=== PATIENT | male | born 1965 | race Caucasian/White ===

== ENCOUNTER → 2020-09-24 | Outpatient (CLI) | payer OTHER ==
[2016-10-06 11:15] VITALS: BP 126/76
[~2020-09-24] MED LIST: APIX5TAB PO; ASPI-630 PO; ATOR20TA PO; ATOR40TA59 PO; AZIT1PAC9 PO; LISI2.5T PO; METO25TA4 PO; OXYC-325 PO; PRAS10TA9 PO; SACU1TAB7 PO
== END ==
LOC: LAB 14:29
PROVIDERS: ATTEND Surgery
DX: Z01.812 Encounter for preprocedural laboratory examination (principal); K40.90 Unilateral inguinal hernia, without obstruction or gangrene, not specified as recurrent; Z20.828 Contact with and (suspected) exposure to other viral communicable diseases
CPT/HCPCS: U0003

== ENCOUNTER 2020-09-27 08:38 | Day surgery (SDC) | payer OTHER ==
[~2020-09-27] VITALS: Ht 175.3 cm; Wt 78.5 kg
[~2020-09-27 08:38] MED LIST changes: +ACETAMINOPHEN 500 MG TABLET PO PRN; +HYDROmorphone 2 MG/ML VIAL IV PRN; +LIDOCAINE 1% PF 2 ML VIAL. ID PRN; +ONDANSETRON PF 4 MG/2 ML VIAL. IV PRN; -OXYC-325 PO; +PROCHLORPERAZINE 10 MG/2 ML VIAL. IV PRN; -SACU1TAB7 PO; +ceFAZolin SODIUM IV Push 1 GM VIAL. IVP PRN; +fentaNYL PF VIAL 100 MCG/2 ML VIAL IV PRN
[2020-09-27] MEDS ORDERED: SUCCINYLCHOLINE 200 MG/10 ML VIAL. ONE (09:00)
[2020-09-27] MEDS ORDERED: LIDOCAINE 2% PF 5 ML VIAL. ONE (09:00)
[2020-09-27] MEDS ORDERED: PROPOFOL 10 MG/ML (20ML) VIAL. IV ONE (09:00)
[2020-09-27] MEDS ORDERED: fentaNYL PF VIAL 100 MCG/2 ML VIAL ONE ×2 (09:00→11:08)
[2020-09-27] MEDS ORDERED: ROCURONIUM 50 MG/5 ML VIAL. ONE (09:00)
[2020-09-27] MEDS: IV RINGERS,LACTATED 1000ML 1,000 ML IV SCH ×2 (09:30→11:27)
[2020-09-27] MEDS ORDERED: SACU1TAB7 PO (09:36)
[2020-09-27] MEDS ORDERED: MINERAL OIL for SURGERY 10 ML VIAL. MC ONE (09:38)
[2020-09-27] MEDS ORDERED: BUPIVACAINE-EPI 0.25%-1:200000 MPF 30 ML VIAL. INJ ONE (09:45)
[2020-09-27] MEDS ORDERED: DEXAMETHASONE SOD PHOS 20 MG/5 ML VIAL. ONE (10:04)
[2020-09-27] MEDS ORDERED: DESFLURANE 31 TO 60 MINUTES IH ONE (10:04)
[2020-09-27] MEDS ORDERED: PHENYLEPHRINE in 0.9% NACL PF 1 MG/10 ML SYRINGE. IV ONE (10:19)
[2020-09-27] MEDS ORDERED: ePHEDrine PF IN SALINE 50 MG/10 ML SYRINGE. IV ONE (10:34)
[2020-09-27] MEDS ORDERED: GLYCOPYRROLATE 1 MG/5 ML VIAL. ONE (10:38)
[2020-09-27] MEDS ORDERED: NEOSTIGMINE METHYLSULFATE 5 MG/5 ML SYRINGE. ONE (10:38)
[2020-09-27] MEDS ORDERED: ONDANSETRON PF 4 MG/2 ML VIAL. ONE (10:38)
--- NOTE | 2020-09-27 10:58 | PDOC4 ---
Operative Note Operative Note Date: 2019 at 1055 Preoperative diagnosis: Left inguinal hernia Postoperative diagnosis: Same Procedure: Robotic assisted laparoscopic left inguinal hernia repair with mesh Surgeon: [place] Specimen: None Dictation: Patient is a 55-year-old male whose had a painful bulge in his left groin. The procedure of robotic assisted laparoscopic left inguinal hernia repair with mesh was explained to the patient detail risk benefits were also discussed including bleeding infection injury to intra-abdominal contents possible necessitating further or open operations. The patient seemed understand and gave both verbal and written consent to have the procedure performed. Patient was taken to the operating room placed in the supine position general anesthesia was initiated once patient was sleeping intubated placed in low lithotomy positioning and his abdomen was prepped and draped usual sterile fashion using ChloraPrep. An area just above the umbilicus was injected with quarter percent Marcaine with epinephrine incision was made 11 blade scalpel and a varies needle was placed within the abdomen creating pneumoperitoneum once this was complete 8 mm da Cal port was placed and the da Cal camera's placed within the abdomen and inspected was noted that there was a left inguinal hernia with incarcerated contents. A 8 mm da Cal port was placed in the right midabdomen and the 8 mm da Cal port was placed in the left midabdomen the da Cal robot was brought and docked all port sites surgeon went to the robotic console using a grasper and Endo Effie scissors the hernia contents were reduced and a incision was made in the peritoneum and a inferior flap was propagated reducing the hernia sac. A large Bard 3D max mesh for the left side was placed over the hernia defect and then the peritoneum was closed with a running 2 OV lock absorbable suture. The da Cal was undocked from all port sites all ports were removed and the port incisions were all closed with 4 subcuticular Monocryl Mastisol Steri-Strips and island dressings were applied. Patient was awakened and extubated in the operating room taken to recovery in stable condition all sponge instrument needle counts listed as correct estimated blood loss 10 mL JUAN TIWARI MD Sep 27, 2020 10:58
--- NOTE | 2020-09-27 11:00 | DISCH ---
DISCHARGE INSTRUCTIONS Condition on Discharge Condition on Discharge: Stable Activity After Discharge Activity Instructions for Disc: Avoid exertion, Other, see below Other activity instructions: No lifting more than 20 pounds for 2 weeks Lifting Instructions after Dis: No heavy lifting, No pulling or pushing Diet after Discharge Diet after Discharge: Cardiac, Low Fat Diet Texture: Regular Wound Incision Care Other wound/incision instructi: May shower in 24 hours Contacting the DRSarina after DC Call your doctor for: If your condition worsens Follow-Up Follow up with: Dr. Tiwari in 2 weeks Treatment/Equipment after DC Adaptive Equipment Issued: None JUAN TIWARI MD Sep 27, 2020 11:00
[2020-09-27] MEDS ORDERED: KETOROLAC 30 MG/ML VIAL. ONE (11:08)
[2020-09-27] MEDS: MORPHINE SULFATE 2 MG/ML VIAL. IV PRN ×2 (11:24→11:47)
[2020-09-27] MEDS: fentaNYL PF VIAL 100 MCG/2 ML VIAL IV PRN ×2 (11:25→11:48)
[2020-09-27] MEDS ORDERED: PROCHLORPERAZINE 10 MG/2 ML VIAL. ONE (11:26)
[2020-09-27] MEDS ORDERED: OXYC-325 PO (11:57)
[2020-09-27] MEDS ORDERED: oxyCODONE/APAP 5/325 1 TAB TABLET PO ONE (12:00)
[2020-09-27] MEDS ORDERED: oxyCODONE/APAP 5/325 1 TAB TABLET PO PRN (12:00)
[2020-09-27 12:13] VITALS: BP 98/66
== END 2020-09-27 12:55 | disposition home or self-care (01) ==
LOC: SURG 08:38
PROVIDERS: ATTEND Surgery
DX: K40.30 Unilateral inguinal hernia, with obstruction, without gangrene, not specified as recurrent (principal); I25.2 Old myocardial infarction; I48.0 Paroxysmal atrial fibrillation; I11.0 Hypertensive heart disease with heart failure; I50.9 Heart failure, unspecified; I25.10 Atherosclerotic heart disease of native coronary artery without angina pectoris; E78.00 Pure hypercholesterolemia, unspecified; M19.90 Unspecified osteoarthritis, unspecified site; F32.9 Major depressive disorder, single episode, unspecified; F17.210 Nicotine dependence, cigarettes, uncomplicated; Z79.899 Other long term (current) drug therapy; Z79.82 Long term (current) use of aspirin; Z98.890 Other specified postprocedural states
CPT/HCPCS: 49650; A7015; C1781; J0330; J0690; J0780; J1100; J2270; J2370; J2405; J2704; J2710; J3010; J3490; J7120; S2900; J1885

== ENCOUNTER → 2021-05-23 | Outpatient (CLI) | payer OTHER ==
[~2021-05-23] MED LIST changes: -ACETAMINOPHEN 500 MG TABLET PO PRN; -HYDROmorphone 2 MG/ML VIAL IV PRN; -LIDOCAINE 1% PF 2 ML VIAL. ID PRN; -ONDANSETRON PF 4 MG/2 ML VIAL. IV PRN; +OXYC-325 PO; -PROCHLORPERAZINE 10 MG/2 ML VIAL. IV PRN; +SACU1TAB7 PO; -ceFAZolin SODIUM IV Push 1 GM VIAL. IVP PRN; -fentaNYL PF VIAL 100 MCG/2 ML VIAL IV PRN
--- NOTE | 2021-05-23 12:51 | CARD ---
MR#: [id number] Date of Study: 05/23/2021 Ordering Physician: KARINA SELLERS, Referring Physician: KARINA SELLERS Tech: Shiela Hua [facility] APPROVED REPORT EXAM: Two-dimensional and M-mode echocardiogram with Doppler and color Doppler. Other Information Quality : GoodHR: 64bpm Rhythm : NSR INDICATION Cardiac Disease: CAD RISK FACTORS Smoking 2D DIMENSIONS RVDd3.8 (2.9-3.5cm)Left Atrium(2D)4.0 (1.6-4.0cm) IVSd1.0 (0.7-1.1cm)Aortic Root(2D)3.5 (2.0-3.7cm) LVDd5.8 (3.9-5.9cm)LVOT Diameter2.7 (1.8-2.4cm) PWd1.1 (0.7-1.1cm)LVDs5.1 (2.5-4.0cm) FS (%) 11.8 %SV41.8 ml LVEF(%)25.0 (>50%) Aortic Valve AoV Peak Jhoan.123.5cm/sAoV VTI27.7cm AO Peak GR.6.1mmHgLVOT Peak Jhoan.97.0cm/s AO Mean GR.4mmHgAVA (VMAX)4.57cm2 Tricuspid Valve TR P. Bxtvmxwo358tl/sTR Peak Gr.25mmHg LEFT VENTRICLE The Left Ventricle is mildly dilated. There is normal left ventricular wall thickness. Moderate left ventricular systolic dysfunction. Akinesis of basal inferior and posterior wall. The ejection fractio n is estimated at 35%. Transmitral Doppler flow pattern is Grade I-abnormal relaxation pattern. There appears to be small apical clot. RIGHT VENTRICLE The right ventricle is normal size There is normal right ventricular wall thickness. The right ventri cular systolic function is normal. ATRIA The left atrium is mildly dilated. The right atrium is mildly dilated. The interatrial septum is inta ct with no evidence for an atrial septal defect or patent foramen ovale as noted on 2-D or Doppler im aging. AORTIC VALVE The aortic valve is normal in structure and function. Doppler and Color Flow revealed no significant aortic regurgitation. There is no significant aortic valvular stenosis. MITRAL VALVE The mitral valve is normal in structure and function. There is no evidence of mitral valve prolapse. There is no mitral valve stenosis. Doppler and Color-flow revealed mild mitral regurgitation. TRICUSPID VALVE The tricuspid valve is normal in structure and function. Doppler and Color Flow revealed trace to mil d tricuspid regurgitation. Estimated PAP 30 mmHg. There is no tricuspid valve stenosis. PULMONIC VALVE The pulmonary valve is normal in structure and function. Doppler and Color Flow revealed mild pulmoni c valvular regurgitation. GREAT VESSELS The aortic root is normal in size. The ascending aorta is normal in size. The IVC is normal in size a nd collapses >50% with inspiration. PERICARDIAL EFFUSION There is no evidence of significant pericardial effusion. Critical Notification Critical Value: No <Conclusion> Moderate left ventricular systolic dysfunction. Akinesis of basal inferior and posterior wall. The ejection fraction is estimated at 35%. Mild mitral regurgitation. Trace to mild tricuspid regurgitation. Estimated PAP 30 mmHg. There is no evidence of significant pericardial effusion. Signed by : Karina Sellers, Electronically Approved : 05/23/2021 12:50:53
== END ==
LOC: ECHO 08:57
PROVIDERS: ATTEND Internal Medicine Cardiovascular Disease
DX: I08.8 Other rheumatic multiple valve diseases (principal); I25.10 Atherosclerotic heart disease of native coronary artery without angina pectoris; R29.898 Other symptoms and signs involving the musculoskeletal system
CPT/HCPCS: 93306

== ENCOUNTER → 2021-09-05 | Outpatient (CLI) | payer OTHER ==
[~2021-09-05] MED LIST changes: -LISI2.5T PO; +LISI2.5T12 PO
--- NOTE | 2021-09-05 15:46 | CARD ---
MR#: [id number] Date of Study: 09/05/2021 Ordering Physician: KARINA SELLERS, Referring Physician: Angelo CARMONA: Peter Neff [facility] APPROVED REPORT EXAM: Two-dimensional and M-mode echocardiogram with Doppler and color Doppler. Other Information Quality : GoodHR: 72bpm Rhythm : NSR INDICATION Cardiomyopathy RISK FACTORS Hypertension Hyperlipidemia Smoking Remote PA, 2D DIMENSIONS Left Atrium(2D)3.5 (1.6-4.0cm)IVSd1.2 (0.7-1.1cm) Aortic Root(2D)3.6 (2.0-3.7cm)LVDd5.8 (3.9-5.9cm) LVOT Diameter2.6 (1.8-2.4cm)PWd1.1 (0.7-1.1cm) LVDs4.6 (2.5-4.0cm)FS (%) 20.9 % SV70.4 mlLVEF(%)42.0 (>50%) Aortic Valve AoV Peak Jhoan.137.0cm/sAoV VTI27.6cm AO Peak GR.7.5mmHgLVOT Peak Jhoan.89.2cm/s AO Mean GR.4mmHgAVA (VMAX)3.39cm2 Mitral Valve MV E Ylxfhioo22.9cm/sMV E Peak Gr.4mmHg MV DECEL [id number] A Kgvfjzxx732.2cm/s MV E Mean Gr.1mmHgE/A Ratio0.5 Pulmonary Valve PV Peak Ddhsqjts47.3cm/s Tricuspid Valve TR P. Cifvrqty086ge/sTR Peak Gr.30mmHg Pulmonary Vein S1 Gkifsaou29.9cm/sD2 Jukbovip33.4cm/s LEFT VENTRICLE The Left Ventricle is mildly dilated. There is borderline to mild concentric left ventricular hypertr ophy. The left ventricular systolic function is mildly impaired. The Ejection Fraction is 40-45% Wilson etic basal inferior and posterior clarke. Transmitral Doppler flow pattern is Grade I-abnormal relaxat ion pattern. No left ventricle thrombus noted on this study. There is no ventricular septal defect vi sualized. There is no left ventricular aneurysm. There is no mass noted in the left ventricle. RIGHT VENTRICLE The right ventricle is borderline dilated. There is normal right ventricular wall thickness. The righ t ventricular systolic function is normal. ATRIA The left atrium is mildly dilated. The right atrium size is normal. The interatrial septum is intact with no evidence for an atrial septal defect or patent foramen ovale as noted on 2-D or Doppler imagi ng. AORTIC VALVE The aortic valve is normal in structure and function. The aortic valve is trileaflet. Doppler and Col or Flow revealed no significant aortic regurgitation. There is no significant aortic valvular stenosi s. There is no aortic valvular vegetation. MITRAL VALVE The mitral valve is normal in structure and function. There is no evidence of mitral valve prolapse. There is no mitral valve stenosis. Doppler and Color-flow revealed trace mitral regurgitation. TRICUSPID VALVE The tricuspid valve is normal in structure and function. Doppler and Color Flow revealed trace tricus pid regurgitation. The PA pressure was estimated at 35 mmHg. There is no tricuspid valve prolapse or vegetation. There is no tricuspid valve stenosis. PULMONIC VALVE The pulmonary valve is normal in structure and function. Doppler and Color Flow revealed no pulmonic valvular regurgitation. There is no pulmonic valvular stenosis. GREAT VESSELS The aortic root is normal in size. The ascending aorta is normal in size. The pulmonary artery is nor mal. The IVC is normal in size and collapses >50% with inspiration. PERICARDIAL EFFUSION There is no pleural effusion. There is no evidence of significant pericardial effusion. Critical Notification Critical Value: No <Conclusion> The left ventricular systolic function is mildly impaired. The Ejection Fraction is 40-45% Akinetic basal inferior and posterior clarke. Transmitral Doppler flow pattern is Grade I-abnormal relaxation pattern. Trace mitral regurgitation. Trace tricuspid regurgitation. The PA pressure was estimated at 35 mmHg. There is no evidence of significant pericardial effusion. Signed by : Karina Sellers, Electronically Approved : 09/05/2021 15:46:28
== END ==
LOC: ECHO 14:41
PROVIDERS: ATTEND Internal Medicine Cardiovascular Disease
DX: I51.7 Cardiomegaly (principal); I25.5 Ischemic cardiomyopathy
CPT/HCPCS: 93306

== ENCOUNTER 2021-09-26 10:43 | Observation (INO) | payer OTHER ==
[2021-09-26] VITALS (10 sets, daily range): BP systolic 113–177; BP diastolic 64–102
[~2021-09-26] VITALS: Ht 175.3 cm; Wt 82.4 kg
[~2021-09-26 10:43] MED LIST changes: +DEXMEDETOMIDINE 200 MCG/2 ML VIAL. IV ONE; +IV RINGERS,LACTATED 1000ML 1,000 ML IV SCH; +KETAMINE HCL IN NACL, ISO-OSM 50 MG/5 ML SYRINGE ONE; +MIDAZOLAM HCL/PF 2 MG/2 ML VIAL. ONE; +PROPOFOL 100 ML IV ONE; +fentaNYL PF VIAL 100 MCG/2 ML VIAL ONE
[2021-09-26 11:09] LABS: HEMATOCRIT 42.3 % (39.0-53.0); HEMOGLOBIN 13.7 g/dL (13.0-17.5); RED BLOOD COUNT 4.11 x10^6/uL (4.30-5.70); RED CELL DISTRIBUTION WIDTH 14.2 % (11.5-14.5); WHITE BLOOD COUNT 6.4 x10^3/uL (4.0-11.0)
[2021-09-26] MEDS ORDERED: ceFAZolin SODIUM 1 GM in IV NORMAL SALINE 100ML 100 ML IRR ONE (11:15)
[2021-09-26 11:17] LABS: CREATININE 0.8 mg/dL (0.7-1.3); GFR 99.3; POTASSIUM 3.3 mmol/L (3.5-5.1)
[2021-09-26 11:18] LABS: PROTHROMBIN TIME PATIENT 13.3 SEC (11.7-14.0)
--- NOTE | 2021-09-26 11:27 | EKG ---
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
[2021-09-26] MEDS ORDERED: ceFAZolin SODIUM IV Push 1 GM VIAL. IVP ONE ×3 (11:56→14:00)
[2021-09-26] MEDS ORDERED: LIDOCAINE 2%/EPI 1:100,000 20 ML VIAL. ONE (11:57)
[2021-09-26] MEDS ORDERED: IODIXANOL 320 MG/ML 100 ML VIAL. ONE (12:46)
[2021-09-26] MEDS ORDERED: LIDOCAINE 2%/EPI 1:100,000 20 ML VIAL. IJ ONE (13:15)
[2021-09-26] MEDS ORDERED: IODIXANOL 320 MG/ML 100 ML VIAL. IV ONE (13:15)
[2021-09-26] MEDS ORDERED: fentaNYL PF VIAL 100 MCG/2 ML VIAL ONE (13:53)
--- NOTE | 2021-09-26 14:02 | CARD ---
MR#: [id number] Date of Study: 09/26/2021 Ordering Physician: KARINA BRIZUELA, Referring Physician: KARINA BRIZUELA, Tech: APPROVED REPORT EXAM Implantation of Biotronik automated implantable cardioverter defibrillator with defibrillation thresh olds measurement at the time of implantation SEDATION ADMINISTERED BY ANESTHESIA FLUORO TIME: 5.5 MIN DOSE: 9.9 GYCM2 CONTRAST: 17CC VISI INDICATIONS Primary prevention of sudden cardiac in a patient with ischemic cardiomyopathy, chronic systoli c heart failure with LVEF 30-35% despite optimal medical therapy PROCEDURE After explaining the risks, benefits, and alternative options, informed consent was obtained from the patient. The patient was brought to the cardiac catheterization lab and the left chest and shoulder were prepp ed and draped in the usual fashion. IV conscious sedation was used throughout procedure with appropriate monitoring and was performed in the presence of a registered nurse who was an independent trained observer other than the physician p erforming the procedure. During this case, Fluoroscopy and low osmolar contrast were used for imaging. Specimen(s) Removed: No Estimated Blood loss: 15 cc's. 30 cc of 2% lidocaine was infiltrated to the skin and subcutaneous tissues for local anesthesia. An incision was made over the left infraclavicular fossa and using blunt dissection and cautery a pocket was created. Initial attempts to obtain venous access under fluoroscopic guidance were unsuccessful . A venogram was obtained by injecting contrast into peripheral IV and venous access was successfull y obtained and 8 Irish sheath was inserted. A Biotronik bipolar active fixation right ventricular l ead with atrial dipole Plexa Pro MRI S DX 65/15, serial #[id number] was advanced under fluoroscopic steph dance and the tip was positioned in the right ventricular apex. The lead was secured into place and was attached to a Biotronik AICD generator Acticor 7 VR-T DX, serial #[id number]. This was placed in t he pocket that was subsequently closed in 3 layers. Hemostasis was secured. Ventricular fibrillation was then induced to check the defibrillation threshold. Patient successfull y converted to sinus rhythm with 15 J shock therapy with a shock impedance of 68 ohms. The right esteban tricular lead showed a sensing amplitude of 8 mV, impedance of 580 ohms and a threshold of 0.7 V. Th e atrial dipole showed a sensing amplitude of a P wave of 2.2 mV. Patient tolerated the procedure we ll. There were no immediate complications. CONCLUSION Successful implantation of Biotronik automated implantable cardioverter defibrillator for primary pre vention of sudden cardiac in a patient with known history of ischemic cardiomyopathy, chronic s ystolic heart failure. Defibrillation thresholds were measured at the time of implantation. Signed by : Karina Brizuela, Electronically Approved : 09/26/2021 14:01:59
[2021-09-26] MEDS ORDERED: IV RINGERS,LACTATED 1000ML 1,000 ML IV SCH (14:15)
[2021-09-26] MEDS ORDERED: MORPHINE SULFATE 2 MG/ML INJ. IVP PRN (14:15)
[2021-09-26] MEDS ORDERED: PROCHLORPERAZINE 10 MG/2 ML VIAL. IVP PRN (14:15)
[2021-09-26] MEDS ORDERED: HYDROmorphone 2 MG/ML VIAL IVP PRN (14:15)
[2021-09-26] MEDS ORDERED: fentaNYL PF VIAL 100 MCG/2 ML VIAL IVP PRN ×2 (14:15)
--- NOTE | 2021-09-26 14:24 | RAD ---
Portable chest x-ray without comparison for post pacemaker placement. FINDINGS: There is a single lead pacemaker on the left. No pneumothorax or pleural effusion. Heart si ze mildly enlarged. IMPRESSION: 1. Left single lead pacemaker with no pneumothorax or pleural effusion. Electronically signed by: Pete Brown MD (09/26/2021 2:22 PM) [id number]
--- NOTE | 2021-09-26 14:30 | NUR ---
Patient arrived to room 668 via bed from pacu around 1430. Patient A&OX4. VSS. No complaints of pain at this time. L chest site CDI. The patient, BALDEMAR ESPOSITO, 56 y/o, M admitted by KARINA SELLERS MD, was given written information regarding hospital policies, unit procedures and contact persons. Valuables were checked and noted. Will continue to monitor.
[2021-09-26] MEDS ORDERED: ZOLPIDEM 5 MG TABLET. PO PRN (18:45)
[2021-09-26] MEDS: SACUBITRIL/VALSARTAN 49/51MG TABLET. PO SCH (20:11)
[2021-09-26] MEDS: METOPROLOL TART IMMED RELEASE 25 MG TABLET. PO SCH (20:12)
[2021-09-26] MEDS: oxyCODONE/APAP 5/325 1 TAB TABLET PO PRN (20:12)
[2021-09-26] MEDS ORDERED: ATORVASTATIN CALCIUM 40 MG TABLET. PO SCH (21:00)
[2021-09-27 03:09] VITALS: BP 131/82
[2021-09-27 07:00] VITALS: BP 147/87
[2021-09-27] MEDS: oxyCODONE/APAP 5/325 1 TAB TABLET PO PRN (08:32)
[2021-09-27] MEDS: SACUBITRIL/VALSARTAN 49/51MG TABLET. PO SCH (08:32)
[2021-09-27] MEDS: METOPROLOL TART IMMED RELEASE 25 MG TABLET. PO SCH (08:33)
[2021-09-27] MEDS ORDERED: ASPIRIN CHEWABLE 81 MG TABLET. PO SCH (09:00)
[2021-09-27] MEDS ORDERED: APIXABAN 5 MG TABLET. PO SCH (09:00)
--- NOTE | 2021-09-27 09:32 | RAD ---
XR CHEST 2V History: Reason: 1 day post pacemaker implantation / Spl. Instructions: / History: Comparison: September 26, 2021 Findings: No consolidation or pleural effusion. Normal heart size. No pneumothorax. Stable left-sided ICD. Impression: 1. Stable left-sided ICD. No pneumothorax. Electronically signed by: Berry Amador DO (09/27/2021 9:30 AM) [facility] [place]
[2021-09-27 11:00] VITALS: BP 144/90
--- NOTE | 2021-09-27 12:35 | PDOC3 ---
Discharge Summary Visit Information Date of Admission: Sep 26, 2021 Date of Discharge: Sep 27, 2021 Admitting Diagnosis: Chronic systolic heart failure Final Diagnosis Chronic systolic heart failure Coronary artery disease Ischemic cardiomyopathy Hypertension Hyperlipidemia Brief Hospital Course Allergies Allergies Coded Allergies Type Severity Reaction Last Updated Verified No Known Drug Allergies 10/05/16 No Vital Signs Vital Signs Date Time Temp Pulse Resp B/P (MAP) Pulse Ox O2 Delivery O2 Flow Rate FiO2 09/27/21 11:00 98.7 64 16 144/90 (108) 95 Room Air 98.7 09/26/21 13:29 2.0 Lab Results Laboratory Tests Test 09/26/21 10:58 White Blood Count 6.4 x10^3/uL (4.0-11.0) Red Blood Count 4.11 x10^6/uL (4.30-5.70) Hemoglobin 13.7 g/dL (13.0-17.5) Hematocrit 42.3 % (39.0-53.0) Mean Corpuscular Volume 103 fL (79-100) Mean Corpuscular Hemoglobin 33 pg (25-35) Mean Corpuscular Hemoglobin Concent 32 g/dL (31-37) Red Cell Distribution Width 14.2 % (11.5-14.5) Platelet Count 105 x10^3/uL (140-400) Prothrombin Time 13.3 SEC (11.7-14.0) Prothromb Time International Ratio 1.0 (0.8-1.1) Sodium Level 144 mmol/L (136-145) Potassium Level 3.3 mmol/L (3.5-5.1) Chloride Level 103 mmol/L (98-107) Carbon Dioxide Level 29 mmol/L (21-32) Anion Gap 12 (6-14) Blood Urea Nitrogen 11 mg/dL (8-26) Creatinine 0.8 mg/dL (0.7-1.3) Estimated GFR (Cockcroft-Gault) 99.3 Glucose Level 98 mg/dL (70-99) Calcium Level 9.0 mg/dL (8.5-10.1) Brief Hospital Course Mr. Vila is a 56 old male with history of coronary artery disease, ischemic cardiomyopathy and chronic systolic heart failure with EF 35% despite optimal medical therapy underwent successful Biotronik AICD implantation for primary prevention of sudden cardiac . His defibrillation thresholds were measured at the time of implantation. He remained hemodynamically stable during his hospital stay. His incision looked good, device check showed normal function and chest x-ray did not show any pneumothorax prior to discharge. He will follow-up with our office in 2 weeks for a wound check and with me in 3 months. Discharge Information Condition at Discharge: Stable Follow Up: Weeks (2) Disposition/Orders: D/C to Home Scheduled Apixaban (Eliquis) 5 Mg Tablet, 5 MG PO BID, #60 (Reported) Entered as Reported by: ANNELIESE ALEJANDRA on 07/09/16 1433 Last Taken: Unknown Dose on 09/24/21 Last Action: Continued on 09/26/211840 by TEODORA CARABALLO Aspirin (Aspirin) 81 Mg Tab.chew, 81 MG PO DAILY, (Reported) Entered as Reported by: ANNELIESE ALEJANDRA on 07/09/16 1434 Last Action: Continued on 09/26/211840 by TEODORA CARABALLO Atorvastatin Calcium (Atorvastatin Calcium) 40 Mg Tablet, 40 MG PO QHS, #30 Ref 3 sig: one po daily at bedtime Prescribed by: VALARIE HOLM on 10/06/16 1117 Last Action: Continued on 09/26/211840 by TEODORA CARABALLO Metoprolol Tartrate (Metoprolol Tartrate) 25 Mg Tablet, 25 MG PO BID, #15 Ref 3 si/2 TAB PO BID Prescribed by: VALARIE HOLM on 10/06/16 1117 Last Taken: Unknown Dose on 09/26/21 Last Action: Continued on 09/26/211840 by TEODORA CARABALLO Sacubitril/Valsartan (Entresto 49 mg-51 mg Tablet) 1 Each Tablet, 1 EACH PO BID for CHF, (Reported) Entered as Reported by: SAIMA NIEVES on 09/27/20 0936 Last Action: Continued on 09/26/211840 by TEODORA CARABALLO Discontinued Medications Oxycodone HCl/Acetaminophen (Percocet 5-325 mg Tablet) 1 Each Tablet, 1-2 TAB PO PRN Q6HRS PRN for PAIN MDD 2 Tablet(s), #20 Ref 0 (Reported) Entered as Reported by: Gi Serra on 09/27/20 1157 Last Action: Discontinued on 09/26/21 1106 by Scarlett Rodriguez Justicifation of Admission Dx: Justifications for Admission: Justification of Admission Dx: Yes KARINA SELLERS MD Sep 27, 2021 12:35
== END 2021-09-27 13:20 | disposition home or self-care (01) ==
LOC: SURG 10:43 → UNDOADMOB 11:10 → 6 SOUTH 11:10
PROVIDERS: ADMIT Internal Medicine Cardiovascular Disease; ATTEND Internal Medicine Cardiovascular Disease
DX: I25.10 Atherosclerotic heart disease of native coronary artery without angina pectoris (principal); I25.5 Ischemic cardiomyopathy; I11.0 Hypertensive heart disease with heart failure; I50.22 Chronic systolic (congestive) heart failure; I25.2 Old myocardial infarction; I48.0 Paroxysmal atrial fibrillation; E78.5 Hyperlipidemia, unspecified; Z79.82 Long term (current) use of aspirin; Z86.711 Personal history of pulmonary embolism; Z86.718 Personal history of other venous thrombosis and embolism; Z51.81 Encounter for therapeutic drug level monitoring; Z90.49 Acquired absence of other specified parts of digestive tract; Z79.899 Other long term (current) drug therapy; Z98.890 Other specified postprocedural states; Z68.25 Body mass index [BMI] 25.0-25.9, adult
CPT/HCPCS: 33249; 36415; 71045; 71046; 75820; 80048; 85027; 85610; 93005; 93640; 96374; C1721; G0378; G0379; J0690; J2250; J2704; J3010; J3490; Q9967

== ENCOUNTER → 2021-09-26 | Outpatient (CLI) | payer OTHER | LOC: LAB 10:48 | PROVIDERS: ATTEND Internal Medicine Cardiovascular Disease | DX: Z01.812 Encounter for preprocedural laboratory examination (principal); Z20.822 Contact with and (suspected) exposure to COVID-19 | CPT/HCPCS: 87426 ==